=== PATIENT | male | born 1960 | race Caucasian/White ===

== ENCOUNTER 2016-08-02 14:56 | Inpatient (IN) | payer MEDICARE, OTHER ==
--- NOTE | ~2016-08-02 | CO ---
Unit #: [id number] #: [id number] Patient: GRABIEL PEREZ [id number] [address] [place], [place] [address] [id number] I MR#: [id number] NAME: GRABIEL PEREZ ROOM: 239 Age: 56 Sex: M Admission Date: 08/03/2016 : 1960 Attending Physician: Delmar Escobedo M.D. Primary Care Physician: Darrin Garcia M.D. Consultation Date: 08/04/2016 CONSULTATION REPORT BRIEF HISTORY The patient is a 56-year-old gentleman who presents status post colonoscopy. He had a colonoscopy, for which he was found to have a large sigmoid polyp. This was removed. There was some hemorrhage afterward, for which multiple clips were placed. His postop course was complicated by abdominal distention. Subsequent CT scan did not show evidence of pneumoperitoneum. He has, since that time, been decompressed with an NG tube but continues to complain of left lower quadrant abdominal pain. He has also dropped his hemoglobin from 14 to 8 with bright red blood per rectum. He has not been febrile. PAST HISTORY He has had a spine surgery with an anterior approach. Does have gastroesophageal reflux disease. Some psych history. MEDICATIONS Medications are Wellbutrin, baclofen, omeprazole, ranitidine, aspirin, potassium, Symbicort. SOCIAL HISTORY No smoking or alcohol. FAMILY HISTORY Negative for GI malignancy. REVIEW OF SYSTEMS No cardiopulmonary complaints at this time. Else, 10 systems reviewed and negative. PHYSICAL EXAMINATION GENERAL: He is awake, alert and appropriate. VITAL SIGNS: Currently afebrile. HEENT: Unremarkable. NECK: His neck is supple. No JVD. Trachea midline. LUNGS: Clear to auscultation. Bilateral breath sounds symmetric. CARDIOVASCULAR: Regular rate and rhythm. ABDOMEN: His abdomen is distended, firm but minimally tender. There are no peritoneal signs. No rebound. His main complaint is the left lower quadrant, but no specific point tenderness. No hernias. EXTREMITIES: No clubbing, cyanosis or edema. DIAGNOSTIC STUDIES LABS: Labs show a normal white count. Unit #: [id number] #: [id number] Patient: GRABIEL PEREZ IMAGING: Recent KUB this morning shows no free air. ASSESSMENT 1. Likely global ileus. 2. GI bleed, likely from polyp site. PLAN Recommend repeat colonoscopy with attempt at hemorrhage control. Will also use for decompression. Would consider operative management if this fails. Discussed in detail with the patient, as well as Dr. Escobedo. Dictated by... Marino Molina M.D. CELIA/lionel TD: 08/04/2016 15:35 JOB #: [id number] CONSULTATION REPORT Page 1 of 1 X Marino Molina MD X CONSULTATION REPORT
--- NOTE | ~2016-08-02 | OR ---
Unit #: [id number] #: [id number] Patient: GRABIEL PEREZ [id number] [address] [place], [place] [address] [id number] I MR#: [id number] NAME: GRABIEL PEREZ ROOM: 239 Date of Procedure: 08/04/2016 Admission Date: 08/03/2016 Surgeon: Delmar Escobedo M.D. : 1960 Attending Physician: Delmar Escobedo M.D. Primary Care Physician: Darrin Garcia M.D. OPERATIVE REPORT PROCEDURE PERFORMED Colonoscopy with multiple hemoclip application as well as submucosal injection for tattooing. INDICATIONS FOR PROCEDURE The patient with significant post polypectomy bleeding, brought in for repeat evaluation and hemostasis. MEDICATIONS Monitored anesthesia. POSTOPERATIVE FINDINGS 1. Multiple at least 8 to 10 polypectomy site identified, two in transverse, one in sigmoid appears to be likely bleeder. No active bleeding was seen. These 3 areas were hemoclipped and tattooed. 2. Large amount of altered blood seen in the colon that was aspirated, no active bleeding seen afterwards. PLAN Follow up on the house with continued watching of the H and H and for any further bleeding. DESCRIPTION OF PROCEDURE The patient was explained of the procedure, risks, and benefits along with the risks and benefits of anesthesia. He was brought to the endoscopy room. Propofol anesthesia was given. Rectal exam was done, which was normal. Colonoscope was lubricated, passed up the rectum, advanced under direct vision all the way to the cecum. Findings have been described above. Gently, the scope was pulled out. He tolerated it well. Dictated by... Marge Arriaga/paula TD: 08/04/2016 22:40 JOB #: [id number] Unit #: [id number] #: [id number] Patient: GRABIEL PEREZ OPERATIVE REPORT Page 1 of 1 X Delmar Escobedo MD PROCEDURE OPERATIVE NOTE
--- NOTE | ~2016-08-02 | CR7 ---
[facility] A Service of [facility] & [facility] RADIOLOGY TEXT RESULTS PATIENT: GRABIEL PEREZ LOCATION: C2A 239-01 : [birth year] UNIT #: [id number] AGE: [address]: Delmar Escobedo MD SEX: M ORDER DR: [id number] [facility] [address] [facility]. [place], [place] [address] [id number] I MR#: [id number] Acc #: [id number] NAME: GRABIEL PEREZ : 1960 SEX: M STUDY DATE/TIME: 08/04/2016 13:35 UNIT: C2A ROOM: 239 STUDY DESCRIPTION: CR Abdomen Single AP View Attending Physician: Delmar Escobedo M.D. Ordering Physician: Delmar Escobedo M.D. Primary Care Physician: Darrin Garcia M.D. MEDICAL IMAGING REPORT This report is preliminary unless electronic signature is present EXAM Abdomen single view 08/04/2016 1335 hours HISTORY Status post colonoscopy today. Left lower quadrant pain with bleeding. COMPARISON 08/04/2016 0854 hours FINDINGS 2 views of the abdomen supine and upright positions demonstrate persistent gaseous distension of small bowel and colon. There is no definite extraluminal air. Hardware in the spine is unchanged. Plate-like atelectasis at the left lung base. Nasogastric tube is no longer seen. IMPRESSION 1. Persistent gaseous distension of small bowel and colon similar to earlier film at 0854 hours today. No free air is seen. 2. Interval removal of the enteric tube. 3. Plate-like atelectasis at the left lung base. Dictated by... Jayleen Barrientos M.D. THIS IS AN ELECTRONICALLY VERIFIED REPORT Jayleen Barrientos M.D. at 08/04/2016 2:29 PM LAURAM/rnr TD: 08/04/2016 13:54 JOB #: [id number] MEDICAL IMAGING REPORT Page 1 of 1 COPY
--- NOTE | ~2016-08-02 | DS ---
Unit #: [id number] #: [id number] Patient: GRABIEL PEREZ [id number] [facility] [address] [facility]. [place], [place] [address] [id number] I MR#: [id number] NAME: GRABIEL PEREZ ROOM: 239 Age: 56 Sex: M Admission Date: 08/03/2016 : 1960 Discharge Date: Attending Physician: Delmar Escobedo M.D. Primary Care Physician: Darrin Garcia M.D. DISCHARGE SUMMARY DISCHARGE DIAGNOSES 1. Anemia secondary to gastrointestinal bleed, postpolypectomy bleeding. 2. Ileus now resolved. DISCHARGE MEDICATIONS Per medication reconciliation. CONSULTANTS 1. Dr. Dong for medical management. 2. Dr. Molina with [facility]. 3. Dr. Robbins for history of bipolar, PTSD and depression/anxiety. HOSPITAL COURSE The patient was initially admitted after a colonoscopy done outpatient where he was found to have multiple polyps. At that time, the patient began to have blood clots with his stool and was subsequently admitted to [facility]. His hemoglobin did drop through his admission and he was transfused with one unit of packed cells and responded appropriately. At this time, he has seen no blood in his stool. He did develop an ileus which has also resolved for which Surgery was consulted. At this time, he is stable for discharge. Diagnostic studies during admission included a CT abdomen and pelvis which showed moderate air volume and small air-fluid throughout the colon; however, no free air. Two KUBs also showed an adynamic ileus. DISCHARGE INSTRUCTIONS 1. The patient is to maintain current diet. 2. Resume home meds as indicated on the medication reconciliation. 3. Should follow up with Dr. Escobedo in two to three weeks as well his primary care within the next week or so. Dictated by... Charity Morgan A.P.R.N. for Marge Arriaga/aminata TD: 08/06/2016 12:28 JOB #: [id number] Unit #: [id number] #: [id number] Patient: GRABIEL PEREZ DISCHARGE SUMMARY Page 1 of 1 X X DISCHARGE SUMMARY
--- NOTE | ~2016-08-02 | CO ---
Unit #: [id number] #: [id number] Patient: GRABIEL PEREZ [id number] [facility] [address] [facility]. [place], [place] [address] [id number] I MR#: [id number] NAME: GRABIEL PEREZ ROOM: 239 Age: 56 Sex: M Admission Date: 08/03/2016 : 1960 Attending Physician: Delmar Escobedo M.D. Primary Care Physician: Darrin Garcia M.D. Consultation Date: 08/04/2016 CONSULTATION REPORT REASON FOR CONSULTATION History of bipolar disorder, PTSD, and depression/anxiety. HISTORY OF PRESENT ILLNESS Mr. De La Cruz is a 56-year-old, white male seen in room 239, bed 1 on 08/04/16 at [facility]. Patient dressed casually in hospital attire lying in a propped up position. Patient has a nasogastric tube. Able to answer questions appropriately. Patient reports that he had a regular colonoscopy done and diagnosed with polyps and may be (1) surgery. Patient reported that he has been diagnosed with schizophrenia and bipolar disorder and takes medication regular. Patient denies any current suicidal or homicidal ideation. Denied any psychotic symptoms, but guarded. Sad, dysphoric mood. Patient denied any use of any drugs and alcohol. Patient's vital signs are 97.9, 86, 18, 110/74, and oxygen saturation 100%. PAST PSYCHIATRIC HISTORY Remarkable for history of bipolar disorder, schizophrenia, and PTSD from injuring his right arm at a young age. MEDICAL HISTORY Remarkable for history of history of five back surgeries and reconstructive surgery on his chest and right arm. MEDICATIONS Patient is on: 1. Wellbutrin. 2. Aspirin. 3. Combivent. 4. Klor-Con. 5. Abilify. 6. Detrol LA. 7. MiraLAX. 8. Morphine. 9. [place]. ALLERGIES No known drug allergies. FAMILY HISTORY AND SOCIAL HISTORY Patient reports that he has a good support system from family. No history of abuse. No history of any substance abuse. REVIEW OF SYSTEMS Unit #: [id number] #: [id number] Patient: GRABIEL PEREZ Complete review of systems is unremarkable. MENTAL STATUS EXAMINATION VITAL SIGNS: Please see above. GENERAL APPEARANCE: Patient dressed casually in hospital attire. ATTENTION SPAN AND CONCENTRATION: Fair. SPEECH: Regular rate. ORIENTATION: Oriented in time, place, and person. MOOD AND AFFECT: Labile. THOUGHT PROCESS: Coherent. THOUGHT CONTENT: Patient denied any thoughts of harming self or others. RECENT AND REMOTE MEMORY: Fair. LANGUAGE: Intact. FUND OF KNOWLEDGE: Fair. INSIGHT AND JUDGEMENT: Fair to slightly impaired. DIAGNOSES PSYCHIATRIC: Bipolar mood disorder, NOS, F31.89. SECONDARY DIAGNOSIS: Deferred. MEDICAL DIAGNOSIS: Please refer to H and P. STRESSORS: Psychosocial stressors. ASSESSMENT/PLAN 1. Supportive psychotherapy and psychoeducation provided to patient. 2. Educated about benefits and side effects of medication and course and prognosis of illness. 3. Advised to check lithium level and resume lithium with Eskalith CR 450 mg b.i.d. Closely monitor patient's mood and behavior. Continue with Abilify and Wellbutrin. If needed, consider further adjustment of medication. Please feel free to call if any questions. Telephone number . Dictated by... Rayshawn Robbins M.D. CHEL/ai TD: 08/05/2016 06:49 JOB #: [id number] CONSULTATION REPORT Page 1 of 1 X Rayshawn Robbins MD CONSULTATION REPORT
--- NOTE | ~2016-08-02 | CO ---
Unit #: [id number] #: [id number] Patient: GRABIEL SCHWARTZ [id number] [address] [address] [id number] I MR#: [id number] NAME: GRABIEL SCHWARTZ ROOM: 239 Age: 56 Sex: M Admission Date: 08/03/2016 : 1960 Attending Physician: Delmar Escobedo M.D. Primary Care Physician: Darrin Garcia M.D. Consultation Date: 08/06/2016 CONSULTATION REPORT REASON FOR CONSULTATION Followup. DISCUSSION Mr. Grabiel Schwartz is a 56-year-old male, seen on 08/06/2016 in room 239, bed 1 at [facility]. The patient is compliant with medication. Reports medication is helping him. No side effects from lithium. The patient is compliant, cooperative, tolerating medication fairly well. The patient's WBC 11.0 and hemoglobin 9.0. The patient denied any suicidal or homicidal ideation. Reports mood is stable. Denied any hallucination. REVIEW OF SYSTEMS Complete review of systems unremarkable. PHYSICAL EXAMINATION VITAL SIGNS: Temperature 98.0, pulse 71, respirations 16, blood pressure 107/59, and oxygen saturation 97%. MENTAL STATUS EXAMINATION General appearance, the patient dressed casually. Attention span and concentration, fair. Speech, regular rate and coherent. Oriented in time, place, and person. Mood and affect, brighter. Thought process, coherent. Thought content, the patient denied any thoughts of harming self or others. Recent and remote memory, fair. Language, intact. Fund of knowledge, fair. Insight and judgment, fair to slightly impaired. DIAGNOSIS Psychiatric: Bipolar mood disorder, not otherwise specified, F31.89. ASSESSMENT/PLAN 1. Supportive psychotherapy and psychoeducation provided to the patient. 2. Educated about benefits and side effects of medication and course and prognosis of illness. Advised to continue with current medication at this time. If needed, consider further adjustment of medication. Please feel free to call if any questions, telephone #[phone]. Dictated by... Rayshawn Robbins M.D. CHEL/paula TD: 08/06/2016 23:49 Unit #: [id number] #: [id number] Patient: GRABIEL SCHWARTZ JOB #: [id number] CONSULTATION REPORT Page 1 of 1 X Rayshawn Robbins MD CONSULTATION REPORT
--- NOTE | ~2016-08-02 | CR4 ---
[facility] A Service of [facility] & [facility] RADIOLOGY TEXT RESULTS PATIENT: GRABIEL PEREZ LOCATION: C2A 239-01 : [birth year] UNIT #: [id number] AGE: [address]: Delmar Escobedo MD SEX: M ORDER DR: [id number] [facility] [address] [facility]. [place], [place] [address] [id number] I MR#: [id number] Acc #: [id number] NAME: GRABIEL PEREZ : 1960 SEX: M STUDY DATE/TIME: 08/04/2016 UNIT: C2A ROOM: 239 STUDY DESCRIPTION: CR Abdomen Flat Upright or Dec Attending Physician: Delmar Escobedo M.D. Ordering Physician: Delmar Escobedo M.D. Primary Care Physician: Darrin Garcia M.D. MEDICAL IMAGING REPORT This report is preliminary unless electronic signature is present EXAM Abdomen supine and upright 08/04/16 08:54 hours HISTORY 56-year-old man with 3-day history of abdominal pain, rectal bleeding following colonoscopy 3 days ago. COMPARISON Abdominal film and CT abdomen pelvis 08/02/2016 FINDINGS Supine and upright views of the abdomen demonstrate persistent gaseous distension of bowel both colon and small bowel similar to prior exam. Findings suggest an adynamic ileus. No free air is seen. A nasogastric tube is present with tip in the stomach but side-hole above the GE junction. Suggest advancing 5-10 cm. IMPRESSION 1. Persistent gaseous distension of both colon and small bowel suggesting adynamic ileus. No free air is seen. 2. Note that the nasogastric tube tip is in the proximal stomach but the side hole is above the GE junction. Suggest advancing this tube 5-10 cm. Dictated by... Jayleen Barrientos M.D. THIS IS AN ELECTRONICALLY VERIFIED REPORT Jayleen Barrientos M.D. at 08/04/2016 2:29 PM LAURAM/jodi TD: 08/04/2016 09:37 JOB #: [id number] [facility] A Service of [facility] & [facility] RADIOLOGY TEXT RESULTS PATIENT: GRABIEL PEREZ LOCATION: [facility] 239-01 : [birth year] UNIT #: [id number] AGE: [address]: Delmar Escobedo MD SEX: M ORDER DR: MEDICAL IMAGING REPORT Page 1 of 1 COPY
--- NOTE | ~2016-08-02 | CO ---
Unit #: [id number] #: [id number] Patient: GRABIEL SCHWARTZ [id number] [address] [address] [id number] I MR#: [id number] NAME: GRABIEL SCHWARTZ ROOM: 239 Age: 56 Sex: M Admission Date: 08/03/2016 : 1960 Attending Physician: Delmar Escobedo M.D. Primary Care Physician: Darrin Garcia M.D. Requesting Physician: Delmar Escobedo M.D. Consultation Date: 08/03/2016 CONSULTATION REPORT REASON FOR CONSULTATION Medical management. HISTORY OF PRESENT ILLNESS Mr. Schwartz is a very pleasant 56-year-old gentleman with a past medical history of PTSD, dyslipidemia, bipolar disorder, and schizophrenia, who had a colonoscopy as an outpatient which found him with multiple polyps, and he is status post polypectomy. Since then, patient has started passing some blood clots with stools. He was admitted by the GI service, Dr. Escobedo. Our consult was obtained for general medical management. His hemoglobin went down from 14 to 10. He complains of abdominal pain. However, x-ray and CT were found without any active findings and no free air. Patient denies any other symptoms. He denies any fever or chills, denies any headache, dizziness, chest pain, shortness of air, dyspnea, nausea, or vomiting, and denies any syncope or presyncope. PAST MEDICAL HISTORY Lots of psychiatric issues including PTSD, schizophrenia, and bipolar disorder. PAST SURGICAL HISTORY 1. Five back surgeries. 2. Reconstructive surgery in his chest and right arm. CURRENT MEDICATIONS 1. Wellbutrin. 2. Combivent. 3. Aspirin. 4. Klor-Con. 5. Abilify. 6. Detrol-LA. 7. June-Lax. 8. Morphine. 9. Zofran. 10. IV fluids with dextrose. 11. Unasyn. ALLERGIES No known drug allergies. SOCIAL HISTORY No current history of tobacco, alcohol, or illicit drugs. He is a reformed smoker. Unit #: [id number] #: [id number] Patient: GRABIEL SCHWARTZ FAMILY HISTORY Unremarkable. PHYSICAL EXAMINATION GENERAL: Patient is a 56-year-old gentleman in no acute distress. VITAL SIGNS: Blood pressure 126/76, heart rate 102, respirations 16, and temperature 98.5. HEENT: Head is atraumatic. Pupils equal, round, and reactive to light and accommodation. Extraocular muscles intact. Oropharynx clear. NECK: Supple. No mass, no JVD, and no bruits. CHEST: Diminished bilaterally. CARDIOVASCULAR: S1 and S2. No murmurs. ABDOMEN: Obese, distended, and tender at the left lower quadrant. No rebound. Bowel sounds are diminished. LOWER EXTREMITIES: Without any cyanosis, clubbing, or edema. NEUROLOGIC: Grossly intact with no focal deficits. DIAGNOSTIC STUDIES LABORATORY: Chemistry significant for blood glucose of 124. White count 12.6. IMAGING: Abdominal x-ray and CT as above. ASSESSMENT AND PLAN 1. Gastrointestinal bleed. Admitted per gastroenterology service. Monitor hemoglobin and hematocrit closely. Transfuse p.r.n. 2. History of posttraumatic stress disorder along with history of bipolar and schizophrenia. Relatively high lithium home dose. Will ask Psychiatry for evaluation and help with lithium dosing. 3. Status post colonoscopy with polypectomy as above. 4. History of dyslipidemia. 5. Gastrointestinal and deep venous thrombosis prophylaxis. Will put on sequential compression devices. Thank you, Dr. Escobedo, for allowing me to participate in this patient's care. We will follow patient along with you. Dictated by..Briseida Dong M.D. OC/am TD: 08/03/2016 21:14 JOB #: [id number] CONSULTATION REPORT Page 1 of 1 X Lex Dong MD X CONSULTATION REPORT
--- NOTE | ~2016-08-02 | CO ---
Unit #: [id number] #: [id number] Patient: GRABIEL SCHWARTZ [id number] [place], [place] [address] [id number] I MR#: [id number] NAME: GRABIEL SCHWARTZ ROOM: 239 Age: 56 Sex: M Admission Date: 08/03/2016 : 1960 Attending Physician: Delmar Escobedo M.D. Primary Care Physician: Darrin Garcia M.D. Consultation Date: 08/05/2016 CONSULTATION REPORT DISCUSSION Mr. Grabiel Schwartz is a 56-year-old white male seen in room 239 bed-1 on 08/05/16 at [facility]. The patient reported that he had colonoscopy yesterday and they clamped the polyps and did not have to go through any surgery. The patient reported that he is feeling better, happier and also lithium was resumed. No side effects of medication. The patient's lithium level was 0.1. The patient reported that his mood is much better. Denied any thoughts of harming self or others, denied any psychotic symptoms. The patient was compliant and cooperative, made good eye contact, able to answer questions appropriately. The patient was dressed in hospital attire, sitting comfortably in bed. MENTAL STATUS EXAMINATION VITAL SIGNS: 98.1, 88, 16, 113/70. Oxygen saturation 100%. GENERAL APPEARANCE: Patient dressed casually in hospital attire. Attention span and concentration fair. Speech - regular rate, coherent. Oriented in time, place and person. Mood and affect were sad, dysphoric but able to smile. Thought process coherent. Thought content - patient denied any thoughts of harming self or others or any psychotic symptoms. Recent and remote memory fair. Language - intact. Fund of knowledge fair. Insight and judgment fair to slightly impaired. DIAGNOSIS PSYCHIATRIC: Bipolar mood disorder, not otherwise specified - F31.89 ASSESSMENT/PLAN 1. Supportive psychotherapy and psychoeducation provided to patient. 2. Educated about benefits and side effects of medications and course and prognosis of illness. 3. Please feel free to call if any questions. Telephone number [phone]. Dictated by... Rayshawn Robbins M.D. CHEL/jaleesa TD: 08/06/2016 07:58 JOB #: [id number] Unit #: [id number] #: [id number] Patient: GRABIEL SCHWARTZ CONSULTATION REPORT Page 1 of 1 X Rayshawn Robbins MD CONSULTATION REPORT
--- NOTE | ~2016-08-02 | CR4 ---
[facility] A Service of [facility] & [facility] RADIOLOGY TEXT RESULTS PATIENT: GRABIEL PEREZ LOCATION: C2A 239-01 : [birth year] UNIT #: [id number] AGE: [address]: Delmar Escobedo MD SEX: M ORDER DR: [id number] [facility] [address] [facility]. [place], [place] [address] [id number] I MR#: [id number] Acc #: [id number] NAME: GRABIEL PEREZ : 1960 SEX: M STUDY DATE/TIME: 08/02/2016 17:30 UNIT: [facility] ROOM: 239 STUDY DESCRIPTION: CR Abdomen Flat Upright or Dec Attending Physician: Delmar Escobedo M.D. Ordering Physician: Delmar Escobedo M.D. Primary Care Physician: Darrin Garcia M.D. MEDICAL IMAGING REPORT This report is preliminary unless electronic signature is present EXAM Flat and upright abdomen INDICATIONS Abdominal pain and vomiting after colonoscopy today. There are no comparison studies available. FINDINGS There is no evidence for free air under the diaphragm. There is gas within the colon consistent with recent colonoscopy. The bowel gas pattern is nonobstructed. Postoperative changes of the lumbar spine. IMPRESSION No evidence for free air under the diaphragm. Dictated by... Anthony Gregg M.D. THIS IS AN ELECTRONICALLY VERIFIED REPORT Anthony Gregg M.D. at 08/04/2016 7:25 AM ARS/psc TD: 08/02/2016 23:33 JOB #: [id number] MEDICAL IMAGING REPORT Page 1 of 1 COPY
--- NOTE | ~2016-08-02 | CT2 ---
[facility] A Service of [facility] RADIOLOGY TEXT RESULTS PATIENT: GRABIEL PEREZ LOCATION: C2A : 64 UNIT #: [id number] AGE: [address]: Delmar Escobedo MD SEX: M ORDER DR: [id number] [place], [place] [address] [id number] MR#: [id number] Acc #: [id number] NAME: GRABIEL PEREZ : 1960 SEX: M STUDY DATE/TIME: 08/02/2016 22:01 UNIT: [facility] ROOM: [facility] STUDY DESCRIPTION: CT Abd and Pelv W Cont Attending Physician: Delmar Escobedo M.D. Ordering Physician: Delmar Escobedo M.D. Primary Care Physician: Darrin Garcia M.D. MEDICAL IMAGING REPORT This report is preliminary unless electronic signature is present EXAM CT abdomen and pelvis with contrast 08/02/2016 HISTORY 56-year-old male complaining of diffuse abdomen pain and rectal bleeding after colonoscopy earlier this morning. TECHNIQUE CT examination of the abdomen and pelvis was performed with IV contrast. GI contrast was not ordered. This CT exam was performed with one or more of the following radiation dose reduction techniques: automatic exposure control, adjustment of mA and/or kV according to patient size, and iterative reconstruction. FINDINGS ABDOMEN: Moderately large volume air and fluid throughout mildly distended colon to the level of the low rectum following earlier colonoscopy procedure. There is no evidence of colon perforation or active inflammation, and small bowel is normal in caliber. The appendix is normal. Cholecystectomy. Mild diffuse hepatic steatosis. No bile duct dilatation. Liver, pancreas, spleen and kidneys are otherwise negative. Normal-caliber abdominal aorta. PELVIS: Bladder, prostate and rectum are within normal limits. Limited lung base images show no active disease in the lower chest. Extensive postop changes lumbar spine fusion surgery. IMPRESSION [facility] A Service of [facility] RADIOLOGY TEXT RESULTS PATIENT: GRABIEL PEREZ LOCATION: C2A : 64 UNIT #: [id number] AGE: [address]: Delmar Escobedo MD SEX: M ORDER DR: 1. No acute abnormality is seen within the abdomen or pelvis. 2. Moderate volume air and small volume fluid throughout the colon to the level of the low rectum following colonoscopy earlier today. There is no evidence of bowel perforation or active GI tract inflammation. Small bowel is normal in caliber. The appendix is normal. 3. Cholecystectomy. Mild diffuse hepatic steatosis. STAT * RESULT Dictated by... Paul Hummel M.D. THIS IS AN ELECTRONICALLY VERIFIED REPORT Paul Hummel M.D. at 08/02/2016 10:37 PM ISABELLA/narendra TD: 08/02/2016 22:25 JOB #: [id number] MEDICAL IMAGING REPORT Page 1 of 1 COPY
[~2016-08-02 14:56] MED LIST: ABILIFY PO; ALLEGRA180 MG PO; ASPIRIN81 MG PO; BACTRIM DS TABL1 TA2 PO; CELEXA PO; COPPER2 MG PO; CYANOCOBAL1000 MCG/M INJ; DETROL LA PO; DEXILANT60 MG PO; DICLOFENAC SODI50 MG PO; ESKALITH PO; ESKALITH-CR450 MG PO; FISH OIL 1,2001 CAP PO; INDOMETHACIN50 MG PO; LASIX20 MG PO; LEVAQUIN750 M1 PO; LIPITOR PO; LIPITOR20 MG PO; LORTAB 10/500 T1 TAB PO; LORTAB 7.5-5001 TAB PO; MEDROL DOSEPAK4 MG PO; MEDROL4 MG/DOSE- PO; NAPROSYN-EC500 M1; NEURONTIN300 MG PO; PHENERGAN PO; PHENERGAN25 M1; PHENERGAN25 M1 PO; POTASSIUM CHLO10 MEQ PO; ROBAXIN500 MG PO; ROXICODONE15 MG PO; TRAMADOL HCL50 M1 PO; TRAZODONE PO; VOLTAREN75 MG PO; WELLBUTRIN XL PO; ZOLPIDEM TARTRAT5 MG; ZYLOPRIM100 MG PO
[2016-08-02 16:37] LABS: HEMATOCRIT 43.3 % (38.0-50.0); HEMOGLOBIN 14.1 gm/dL (13.0-16.0); MEAN CELL VOLUME 84.8 FL (83-96); MEAN CORPUSCULAR HEMOGLOBIN 27.5 PG (28-34); MEAN CORPUSCULAR HGB CONC 32.5 g/dL (30-36); MEAN PLATELET VOLUME 8.1 FL (6.5-11.5); RED BLOOD COUNT 5.1 X10e (3.90-5.60); RED CELL DISTRIBUTION WIDTH 15.3 % (11.0-15.5); WHITE BLOOD COUNT 13.6 X10e3 (4.0-10.5)
[2016-08-02] MEDS ORDERED: LASIX20 MG PO (16:39)
[2016-08-02] MEDS ORDERED: ZOLPIDEM TARTRAT5 M1 PO (16:40)
[2016-08-02 17:10] LABS: ALBUMIN SERUM 3.6 g/dL (3.5-5.0); BILIRUBIN,TOTAL 0.5 mg/dL (0.2-2.0); BUN/CREATININE RATIO 7.77; CALCIUM SERUM 8.8 mg/dL (8.4-10.2); CREATININE SERUM 0.9 mg/dL (0.6-1.4); GLOM FILT RATE Estimated 96.5 mL/min (>60); POTASSIUM 4.1 mmol/L (3.5-5.1); PROTEIN TOTAL SERUM 7.5 g/dL (6.0-8.3)
[2016-08-02 20:04] LABS: HEMOGLOBIN 12.8 gm/dL (13.0-16.0)
[2016-08-03 07:03] LABS: HEMATOCRIT 34.7 % (38.0-50.0); MEAN CELL VOLUME 85.6 FL (83-96); MEAN CORPUSCULAR HEMOGLOBIN 26.5 PG (28-34); MEAN PLATELET VOLUME 8.5 FL (6.5-11.5); RED BLOOD COUNT 4.05 X10e (3.90-5.60); WHITE BLOOD COUNT 12.6 X10e3 (4.0-10.5)
[2016-08-03 07:12] LABS: HEMOGLOBIN 10.8 gm/dL (13.0-16.0)
[2016-08-03 07:44] LABS: ALBUMIN SERUM 2.8 g/dL (3.5-5.0); BILIRUBIN,TOTAL 0.7 mg/dL (0.2-2.0); BUN/CREATININE RATIO 7.77; CALCIUM SERUM 8.5 mg/dL (8.4-10.2); CREATININE SERUM 0.9 mg/dL (0.6-1.4); GLOM FILT RATE Estimated 96.5 mL/min (>60); POTASSIUM 3.7 mmol/L (3.5-5.1)
[2016-08-03 20:37] LABS: HEMATOCRIT 27.3 % (38.0-50.0); HEMOGLOBIN 8.8 gm/dL (13.0-16.0)
[2016-08-04 02:17] LABS: HEMATOCRIT 27.3 % (38.0-50.0); HEMOGLOBIN 8.8 gm/dL (13.0-16.0)
[2016-08-04 05:57] LABS: HEMOGLOBIN 8.6 gm/dL (13.0-16.0); MEAN CELL VOLUME 83.8 FL (83-96); MEAN CORPUSCULAR HEMOGLOBIN 27.7 PG (28-34); MEAN PLATELET VOLUME 8.5 FL (6.5-11.5); RED BLOOD COUNT 3.1 X10e (3.90-5.60); RED CELL DISTRIBUTION WIDTH 14.8 % (11.0-15.5); WHITE BLOOD COUNT 8.4 X10e3 (4.0-10.5)
[2016-08-04 06:54] LABS: ALBUMIN SERUM 2.7 g/dL (3.5-5.0); BILIRUBIN,TOTAL 0.1 mg/dL (0.2-2.0); BUN/CREATININE RATIO 7.5; CALCIUM SERUM 8.1 mg/dL (8.4-10.2); CREATININE SERUM 0.8 mg/dL (0.6-1.4); GLOM FILT RATE Estimated 101.3 mL/min (>60); PROTEIN TOTAL SERUM 5.6 g/dL (6.0-8.3)
[2016-08-04 10:17] LABS: HEMATOCRIT 27.1 % (38.0-50.0); HEMOGLOBIN 8.6 gm/dL (13.0-16.0)
[2016-08-04 14:36] LABS: HEMATOCRIT 25.6 % (38.0-50.0); HEMOGLOBIN 8.2 gm/dL (13.0-16.0)
[2016-08-05 06:30] LABS: HEMATOCRIT 22.1 % (38.0-50.0); MEAN CELL VOLUME 84.9 FL (83-96); MEAN CORPUSCULAR HEMOGLOBIN 26.7 PG (28-34); MEAN CORPUSCULAR HGB CONC 31.5 g/dL (30-36); RED BLOOD COUNT 2.6 X10e (3.90-5.60); RED CELL DISTRIBUTION WIDTH 14.5 % (11.0-15.5); WHITE BLOOD COUNT 7.6 X10e3 (4.0-10.5)
[2016-08-05 07:21] LABS: ALBUMIN SERUM 2.5 g/dL (3.5-5.0); ALKALINE PHOSPHATASE 53 U/L (32-92); ALT (SGPT) 13 U/L (10-40); AST (SGOT) 11 U/L (10-42); BILIRUBIN,TOTAL 0.3 mg/dL (0.2-2.0); BLOOD UREA NITROGEN <5 mg/dL (9-23); BUN/CREATININE RATIO 7.14; CALCIUM SERUM 8.2 mg/dL (8.4-10.2); CARBON DIOXIDE 26 mmol/L (22-31); CHLORIDE 110 mmol/L (100-111); CREATININE SERUM 0.7 mg/dL (0.6-1.4); GLUCOSE FASTING 98 mg/dL (70-110); MAGNESIUM 2.1 mg/dL (1.6-3.0); POTASSIUM 3.4 mmol/L (3.5-5.1); PROTEIN TOTAL SERUM 4.9 g/dL (6.0-8.3); SODIUM 142 mmol/L (135-145)
[2016-08-06 05:56] LABS: HEMATOCRIT 27.9 % (38.0-50.0); MEAN CELL VOLUME 84.6 FL (83-96); MEAN CORPUSCULAR HEMOGLOBIN 27.4 PG (28-34); MEAN CORPUSCULAR HGB CONC 32.4 g/dL (30-36); MEAN PLATELET VOLUME 7.7 FL (6.5-11.5); RED BLOOD COUNT 3.3 X10e (3.90-5.60)
[2016-08-06 07:27] LABS: ALBUMIN SERUM 2.6 g/dL (3.5-5.0); ALKALINE PHOSPHATASE 57 U/L (32-92); ALT (SGPT) 14 U/L (10-40); AST (SGOT) 13 U/L (10-42); BILIRUBIN,TOTAL 0.2 mg/dL (0.2-2.0); CALCIUM SERUM 8.5 mg/dL (8.4-10.2); CARBON DIOXIDE 23 mmol/L (22-31); CHLORIDE 107 mmol/L (100-111); CREATININE SERUM 0.7 mg/dL (0.6-1.4); GLUCOSE FASTING 105 mg/dL (70-110); POTASSIUM 3.3 mmol/L (3.5-5.1); PROTEIN TOTAL SERUM 5.2 g/dL (6.0-8.3); SODIUM 141 mmol/L (135-145)
[2016-08-06 07:34] LABS: BLOOD UREA NITROGEN <5 mg/dL (9-23); BUN/CREATININE RATIO 7.14
== END 2016-08-06 13:11 | disposition home or self-care (01) | DRG 920 ==
LOC: CEDOF 14:56 → C2A 14:56 → CEDOF 14:56 → C2A 16:19 → CEDOF 08-03 08:00 → C2A 08-03 08:00
PROVIDERS: Internal Medicine
PROC: 0W3P8ZZ Control Bleeding in Gastrointestinal Tract, Via Natural or Artificial Opening Endoscopic (ICD-10-PCS; principal; 2016-08-04 12:07)
PROC: 30233N1 Transfusion of Nonautologous Red Blood Cells into Peripheral Vein, Percutaneous Approach (ICD-10-PCS; 2016-08-05)
DX: K91.840 Postprocedural hemorrhage of a digestive system organ or structure following a digestive system procedure (principal); K56.7 Ileus, unspecified; Y83.8 Other surgical procedures as the cause of abnormal reaction of the patient, or of later complication, without mention of misadventure at the time of the procedure; D64.9 Anemia, unspecified; F43.10 Post-traumatic stress disorder, unspecified; F31.9 Bipolar disorder, unspecified; E78.5 Hyperlipidemia, unspecified; F20.9 Schizophrenia, unspecified; Z79.82 Long term (current) use of aspirin; Z87.891 Personal history of nicotine dependence; K21.9 Gastro-esophageal reflux disease without esophagitis
CPT/HCPCS: 74000; 74020; 74177; 80053; 80178; 83605; 83735; 85014; 85018; 85027; 86850; 86900; 86901; 86923; 94640; 94760; J0295; J2270; J2405; P9016; Q9967

== ENCOUNTER → 2016-11-15 | Outpatient (CLI) | payer MEDICARE, OTHER ==
[~2016-11-15] MED LIST changes: +ZOLPIDEM TARTRAT5 M1 PO
--- NOTE | ~2016-11-15 | CR229 ---
[facility]. [facility] A Service [facility] RADIOLOGY TEXT RESULTS PATIENT: GRABIEL PEREZ LOCATION: SRAMed : 64 UNIT #: [id number] AGE: [address]: Darrin Garcia MD SEX: M ORDER DR: [id number] [address] [address] [id number] O MR#: [id number] Acc #: [id number] NAME: GRABIEL PEREZ : 1960 SEX: M STUDY DATE/TIME: 11/15/2016 11:34 UNIT: SRAD ROOM: STUDY DESCRIPTION: CR Shoulder Min 2 View Lt Attending Physician: Darrin Garcia M.D. Ordering Physician: Darrin Garcia M.D. Primary Care Physician: Darrin Garcia M.D. MEDICAL IMAGING REPORT This report is preliminary unless electronic signature is present. EXAM Left shoulder HISTORY Shoulder pain beginning 1 year ago. Previous history of bone infection. TECHNIQUE 3 views shoulder were obtained. FINDINGS Moderate degenerative changes are seen at the acromioclavicular joint. Glenohumeral joint is unremarkable. There is no evidence of soft tissue calcification bone destruction or erosion. No osteochondral fragments are seen. IMPRESSION Moderate degenerative change at the acromioclavicular joint. Otherwise, negative. Dictated by... Cam Alegre M.D. THIS IS AN ELECTRONICALLY VERIFIED REPORT Cam Alegre M.D. at 11/23/2016 2:01 PM RLF/pcl TD: 11/15/2016 19:03 JOB #: [id number] MEDICAL IMAGING REPORT [facility]. [facility] A Service [facility] RADIOLOGY TEXT RESULTS PATIENT: GRABIEL PEREZ LOCATION: SRAMed : 64 UNIT #: [id number] AGE: [address]: Darrin Garcia MD SEX: M ORDER DR: Page 1 of 1
== END | disposition home or self-care (01) ==
LOC: SRAD 11:29
DX: M25.512 Pain in left shoulder (principal); M19.012 Primary osteoarthritis, left shoulder
CPT/HCPCS: 73030